=== PATIENT | female | born 1935 | race Caucasian/White ===

== ENCOUNTER 2023-03-26 08:02 | Outpatient (CLI) | payer MEDICARE | END 2023-03-26 23:59 | disposition critical access hospital (66) | LOC: EMS 08:02 | DX: M25.561 Pain in right knee (principal); R41.82 Altered mental status, unspecified; W06.XXXA Fall from bed, initial encounter; Y92.092 Bedroom in other non-institutional residence as the place of occurrence of the external cause | CPT/HCPCS: A0425; A0429 ==

== ENCOUNTER 2023-03-26 08:21 | Emergency (ER) | payer MEDICARE, OTHER ==
--- NOTE | 2023-03-26 08:29 | ED Physician Documentation ---
PD HPI Fall - Stated complaint Stated Complaint: GLF - History obtained from History obtained from: Patient, EMS - History of Present Illness Mechanism of injury: Unknown (she was found on floor by caregivers. Had some tenderness left parietal area. Sent to ER via EMS due to concerns of the fall. Here, does not seem concussive.) Review of Systems Unable to obtain: Dementia Constitutional: denies: Chills, Myalgias Cardiac: denies: Chest pain / pressure GI: denies: Abdominal Pain, Vomiting, Diarrhea Skin: denies: Abrasion (s), Laceration (s) Neurologic: reports: Generalized weakness. denies: Focal weakness, Numbness, Headache PD PAST MEDICAL HISTORY - Past Medical History Cardiovascular: Hypertension Respiratory: None Neuro: None Endocrine/Autoimmune: None - Present Medications Home Medications: Ambulatory Orders Medication Instructions Recorded Confirmed cephALEXin [Keflex] 500 mg PO QID #24 cap 03/26/23 - Allergies Allergies/Adverse Reactions: Allergies Allergy/AdvReac Type Severity Reaction Status Date / Time gabapentin Allergy Unknown Verified 03/26/23 08:40 Penicillins Allergy Unknown Verified 03/26/23 08:40 PD ED PE NORMAL - Vitals Vital signs reviewed: Yes - General General: No acute distress, Well developed/nourished. No: Alert and oriented X 3 (oreinted to person/place. Alert and conversant otherwise. ) - HEENT HEENT: Other (mild tender left parietla area without swelling nor deformity. ) - Neck Neck: Supple, no meningeal sign, No bony TTP, No adenopathy - Cardiac Cardiac: RRR, No murmur - Respiratory Respiratory: Clear bilaterally - Abdomen Abdomen: Normal bowel sounds, Soft, Non tender, Non distended, No organomegaly - Back Back: No CVA TTP - Derm Derm: Normal color, Warm and dry - Extremities Extremities: Normal ROM s pain, No edema, No calf tenderness / cord - Neuro Neuro: No motor deficit, Normal speech Eye Opening: Spontaneous Motor: Obeys Commands Verbal: Oriented GCS Score: 15 Results - Vitals Vitals: Vital Signs - 24 hr 03/26/23 03/26/23 03/26/23 08:30 10:37 11:11 Temperature 36.6 C Heart Rate 50 L 52 L 44 L Respiratory 20 16 18 Rate Blood Pressure 117/63 170/77 H O2 Saturation 100 97 100 If not protocol 4 4 : Oxygen Flow, liters/minute 03/26/23 13:51 Temperature 36.6 C Heart Rate 57 L Respiratory 18 Rate Blood Pressure 157/81 H O2 Saturation 99 If not protocol : Oxygen Flow, liters/minute Oxygen O2 Source Nasal cannula - Labs Labs: Laboratory Tests 03/26/23 03/26/23 03/26/23 09:17 09:17 09:50 WBC 14.6 H RBC 5.26 Hgb 14.3 Hct 45.9 MCV 87.3 MCH 27.2 MCHC 31.2 L RDW 15.1 H Plt Count 286 MPV 10.5 Neut # (Auto) 11.6 H Lymph # (Auto) 1.6 [place] # (Auto) 0.9 Eos # (Auto) 0.3 Baso # (Auto) 0.0 Absolute Nucleated RBC 0.00 Nucleated RBC % 0.0 Sodium 142 Potassium 4.0 Chloride 100 L Carbon Dioxide 32 Anion Gap 10.0 BUN 22 H Creatinine 1.1 H Estimated GFR (MDRD) 47 L Glucose 185 H Calcium 8.8 Magnesium 2.0 Total Bilirubin 0.5 AST 15 ALT 16 Alkaline Phosphatase 22 L Total Protein 6.9 Albumin 3.3 Globulin 3.6 Albumin/Globulin Ratio 0.9 L Lipase 28 Urine Color YELLOW Urine Clarity CLOUDY Urine pH 6.0 Ur Specific [place] 1.020 Urine Protein NEGATIVE Urine Glucose (UA) NEGATIVE Urine Ketones NEGATIVE Urine Occult Blood NEGATIVE Urine Nitrite POSITIVE H Urine Bilirubin NEGATIVE Urine Urobilinogen 0.2 (NORMAL) Ur Leukocyte Esterase SMALL H Urine RBC 0-5 Urine WBC >25 H Urine WBC Clumps PRESENT Ur Squamous Epith Cells RARE Squamous Urine Bacteria Moderate H Ur Microscopic Review INDICATED Urine Culture Comments INDICATED - Rads (name of study) T Relevant Findings:: Prelim report reviewed (no acute findings) chest xray Relevant Findings:: Prelim report reviewed (no infiltrates), See rad report abd/pelvic CT Relevant Findings:: Prelim report reviewed (no acute findings. Diverticulosis. ), See rad report PD Medical Decision Making - ED course Complexity details: reviewed results (head CT without acute process. Chest xray without infiltrates. After these resulted and labs too, the patient then described some pain right abd/flank and was mild tender (had not been tender initial exam). Can get CT to eval for significant process. This was done and no acute findings. ), considered differential (sent from care facility due to reported confusion more than abaseline, general weakness today. No fever. was found on floor, presumed fall. Had some tenderness on scalp. ), d/w patient Reviewed Lab Results: UA showing positive nitrates and some bacteria, elukocytes. These are relatively common in older patients with some baseline incontinence. Does not translate to infection necessarily and not likely the cause of her symptoms without signs of more systempic effect of infection (fever, WBC, low CO2, etc). She does not have fever, has normal vitals. Has elevted WBC at 14K. CO2 level on chemistry panel is normal, so not apparent acidemia. Presume just UTI, though right abd pain could signifify some peressure up to kidney. CT did not show hydroneopphrosis. ED course: she arrives via EMS alert and conversant. Some short term memory deficit of recent events. likely dementia as not alterd alertness/etc. No apparent injuries from fall (found on floor) aside from scalp contusion. Did not have abd pain at first on arrival, but complained of some while in ER. Consider injury from fall, other process (kidney stone, gallbladder, diverticulitis, etc. Regarding the fall, also need to eval for causes of symcope. Testing is normal and cardiac rehabilitation specialist showing normal rhythm, no ectopy, and normal BPvital signs. Departure - Departure Disposition: 01 Home, Self Care Clinical Impression: Abdominal discomfort in right flank, UTI (urinary tract infection), Confusion Condition: Stable Record reviewed to determine appropriate education?: Yes Prescriptions: cephALEXin [Keflex] 500 mg PO QID #24 cap Comments: Your urine sample does show signs of likely infection. The urine culture will result in a couple of days to better identify. We will start with cephalexin antibiotic 4 times daily for this. This could account for your weakness/confusion. Most the time it is not really related to the bladder infection per se. Your abdominal discomfort likely is related to it however. We did do a CT scan of your head and abdomen. No acute abnormalities are seen. Your blood test did not show any notable abnormalities. Your white count was a little elevated consistent with an infectious process. Continue usual medications. Tylenol every 6 hours regularly for the next 5 days to help with pain and discomfort. Cephalexin 4 times daily as directed. Recheck if not improving well over the next few days and follow-up if worsening. Discharge Date/Time: 03/26/23 13:51
[2023-03-26 09:21] LABS: BASOPHILS % (AUTO) 0.3 %; EOSINOPHILS # (AUTO) 0.3 10^3/uL (0.0-0.7); EOSINOPHILS % (AUTO) 1.9 %; HCT - HEMATOCRIT 45.9 % (37.0-47.0); HGB - HEMOGLOBIN 14.3 g/dL (12.0-16.0); LYMPHOCYTES # (AUTO) 1.6 10^3/uL (1.5-3.5); LYMPHOCYTES % (AUTO) 10.8 %; MEAN CORPUSCULAR HEMOGLOBIN 27.2 pg (27.0-31.0); MEAN CORPUSCULAR HGB CONC 31.2 g/dL (32.0-36.0); MEAN CORPUSCULAR VOLUME 87.3 fL (81.0-99.0); MEAN PLATELET VOLUME 10.5 fL (7.9-10.8); MONOCYTES # (AUTO) 0.9 10^3/uL (0.0-1.0); MONOCYTES % (AUTO) 6.3 %; NEUTROPHILS # (AUTO) 11.6 10^3/uL (1.5-6.6); NEUTROPHILS % (AUTO) 79.9 %; PLT - PLATELET COUNT 286 10^3/uL (130-450); RED BLOOD COUNT 5.26 10^6/uL (4.20-5.40); RED CELL DISTRIBUTION WIDTH 15.1 % (12.0-15.0); WHITE BLOOD COUNT 14.6 x10^3/uL (4.8-10.8)
--- NOTE | 2023-03-26 09:24 | XRAY Report ---
PROCEDURE: Chest 1 View X-Ray INDICATIONS: weakness TECHNIQUE: One view of the chest was acquired. COMPARISON: None. FINDINGS: Surgical changes and devices: None. Lungs and pleura: Small left pleural effusion with minimal left basilar atelectasis. Mediastinum: Mediastinal contours appear normal. Cardiomegaly. Bones and chest wall: No suspicious bony lesions. Overlying soft tissues appear unremarkable. IMPRESSION: Cardiomegaly. Small left pleural effusion with minimal left basilar atelectasis. Reviewed by: Navin Wall MD on 03/26/2023 9:23 AM PDT Approved by: Navin Wall MD on 03/26/2023 9:23 AM PDT Station ID: [id number]
--- NOTE | 2023-03-26 09:25 | CT Report ---
PROCEDURE: HEAD WO INDICATIONS: fall and more confused TECHNIQUE: Noncontrast 4.5 mm thick angled axial sections acquired from the foramen magnum to the vertex. For r adiation dose reduction, the following was used: automated exposure control, adjustment of mA and/or kV according to patient size. COMPARISON: None. FINDINGS: Image quality: Excellent. CSF spaces: Basal cisterns are patent. No extra-axial fluid collections. Ventricles are normal in size and shape. Brain: No midline shift. No intracranial masses or hemorrhage. Antonio-white matter interface is norm al. Intracranial carotid calcifications. Age-related volume loss and moderate small vessel ischemic change. Skull and face: Calvarium and visualized facial bones are intact, without suspicious lesions. Sinuses: Visualized sinuses and mastoids are clear. IMPRESSION: 1. No acute intracranial pathology 2. Age-related volume loss and moderate small vessel ischemic change. Reviewed by: Navin Wall MD on 03/26/2023 9:24 AM PDT Approved by: Navin Wall MD on 03/26/2023 9:24 AM PDT Station ID: [id number]
[2023-03-26 09:33] LABS: ALBUMIN 3.3 g/dL (3.2-5.5); ALBUMIN/GLOBULIN RATIO 0.9 (1.0-2.2); BILIRUBIN,TOTAL 0.5 mg/dL (0.2-1.0); CALCIUM 8.8 mg/dL (8.5-10.3); CREATININE 1.1 mg/dL (0.4-1.0); TOTAL PROTEIN 6.9 g/dL (6.7-8.2)
[2023-03-26 09:57] LABS: BILIRUBIN,URINE NEGATIVE (NEGATIVE); GLUCOSE, URINE (UA) NEGATIVE (NEGATIVE); KETONES,URINE (UA) NEGATIVE (NEGATIVE); LEUKOCYTE ESTERASE, URINE SMALL (NEGATIVE); NITRITE,URINE POSITIVE (NEGATIVE); OCCULT BLOOD,URINE NEGATIVE (NEGATIVE); PROTEIN,URINE NEGATIVE (NEGATIVE); UROBILINOGEN,URINE 0.2 (NORMAL) E.U./dL (NORMAL)
[2023-03-26 09:59] LABS: CLARITY,URINE CLOUDY (CLEAR)
[2023-03-26 10:02] LABS: BACTERIA,URINE Moderate /HPF (None Seen); RBC,URINE 0-5 /HPF (0-5); SQUAMOUS EPITHELIAL CELL,UR RARE Squamous (<= Few); WBC CLUMPS,URINE PRESENT; WBC,URINE >25 /HPF (0-5)
[2023-03-26] MEDS ORDERED: cephALEXin 250 MG CAPSULE PO STA (10:06)
[2023-03-26] MEDS ORDERED: iohexoL-300 100 ML VIAL ONE (10:43)
--- NOTE | 2023-03-26 11:26 | CT Report ---
PROCEDURE: ABDOMEN/PELVIS W INDICATIONS: right upper abd pain today CONTRAST: 100ml omni 300 TECHNIQUE: After the administration of intravenous contrast, 5 mm thick sections acquired from the diaphragms to the symphysis. 5 mm thick coronal and sagittal reformats were acquired. For radiation dose reducti on, the following was used: automated exposure control, adjustment of mA and/or kV according to joan ent size. COMPARISON: None FINDINGS: Image quality: Excellent. Lung bases and heart: Unremarkable. Liver: No solid mass. Gallbladder and biliary tree: No radiopaque stones or wall thickening. No biliary dilation. Spleen: No splenomegaly. Pancreas: No pancreatic ductal dilation. Adrenals: No adrenal nodule. Kidneys and ureters: Markedly atrophied right kidney. Normal sized left kidney with normal enhancemen t. Bowel and peritoneum: No bowel distension. No pathologic free fluid. Redundant elongated:. Diverticul osis without evidence of diverticulitis. Lymph nodes: No central or retroperitoneal adenopathy. Vessels: No infrarenal aortic aneurysm. PELVIS Reproductive organs: Unremarkable. Posterior pelvic floor relaxation. Bladder: No abnormal wall thickening, accounting for underdistension. Pelvic lymph nodes: No pelvic adenopathy by size criteria. Bones: No aggressive osseous abnormality. Lumbar degenerative change. Other: Small fat-containing umbilical hernia. IMPRESSION: 1. No evidence acute abdominal process. 2. Diverticulosis. 3. Markedly atrophied right kidney. Reviewed by: Navin Wall MD on 03/26/2023 11:25 AM PDT Approved by: Navin Wall MD on 03/26/2023 11:25 AM PDT Station ID: [id number]
[2023-03-26 13:58] VITALS: BP 157/81
[2023-03-26] MEDS ORDERED: iohexoL-300 100 ML VIAL IVP ONE (15:24)
== END 2023-03-26 13:51 | disposition home or self-care (01) ==
LOC: ED 08:21
DX: N39.0 Urinary tract infection, site not specified (principal); F03.90 Unspecified dementia, unspecified severity, without behavioral disturbance, psychotic disturbance, mood disturbance, and anxiety; W19.XXXA Unspecified fall, initial encounter
CPT/HCPCS: 36415; 70450; 71045; 74177; 80053; 81001; 83690; 83735; 85025; 87077; 87086; 87181; 99284; A9270; Q9967; 81003

== ENCOUNTER 2023-03-26 13:49 | Outpatient (CLI) | payer MEDICARE | END 2023-03-26 23:59 | disposition home or self-care (01) | LOC: EMS 13:49 | PROVIDERS: ATTEND Emergency Medicine | DX: R41.0 Disorientation, unspecified (principal); N39.0 Urinary tract infection, site not specified; F03.90 Unspecified dementia, unspecified severity, without behavioral disturbance, psychotic disturbance, mood disturbance, and anxiety | CPT/HCPCS: A0425; A0428 ==